=== PATIENT | female | born 1985 | race Native Hawaiian/Other Pacific Islander ===

== ENCOUNTER 2016-08-01 13:39 | Emergency (ER) | payer OTHER ==
[~2016-08-01] VITALS: Ht 170.2 cm; Wt 65.8 kg
[2016-08-01] MEDS ORDERED: SEROQUEL50 MG OR (14:14)
== END 2016-08-01 15:38 | disposition home or self-care (01) ==
LOC: ED 13:39
DX: S01.511A Laceration without foreign body of lip, initial encounter (principal); S80.12XA Contusion of left lower leg, initial encounter; S80.02XA Contusion of left knee, initial encounter; S80.01XA Contusion of right knee, initial encounter; S70.12XA Contusion of left thigh, initial encounter; S70.11XA Contusion of right thigh, initial encounter; W22.8XXA Striking against or struck by other objects, initial encounter; Y93.89 Activity, other specified; Y92.098 Other place in other non-institutional residence as the place of occurrence of the external cause
CPT/HCPCS: 90715; 96372; 99282

== ENCOUNTER 2016-08-13 13:59 | Emergency (ER) | payer OTHER ==
[~2016-08-13] VITALS: Ht 170.2 cm; Wt 67.1 kg
[~2016-08-13 13:59] MED LIST: SEROQUEL50 MG OR
[2016-08-13 14:49] LABS: PLATELET COUNT 305 K/uL (152-353)
[2016-08-13 14:57] LABS: POTASSIUM 3.6 mmol/L (3.6-5.2); SODIUM 137 mmol/L (136-145)
== END 2016-08-14 16:48 | disposition other institution (70) ==
LOC: ED 13:59
DX: R45.851 Suicidal ideations (principal); F15.10 Other stimulant abuse, uncomplicated
CPT/HCPCS: 36415; 80053; 80307; 80320; 80329; 81000; 85027; 99285; G0479